=== PATIENT | female | born 1935 | race Caucasian/White ===

== ENCOUNTER 2019-09-14 07:57 | Day surgery (SDC) | payer MEDICARE, BC ==
[2019-09-14] MEDS ORDERED: Sodium Chloride 0.9% 10 ML Syringe FLUSH PRN (08:30)
[2019-09-14 09:46] VITALS: BP 144/78; PULSE 65
--- NOTE | 2019-09-14 13:53 | OR ---
DATE OF PROCEDURE: 09/14/2019 SURGEON: Radha Pardo MD POSTOPERATIVE CARE: Postoperative care will be provided mainly at the [address] [place] [address] [facility] in conjunction with [facility]. PREOPERATIVE DIAGNOSIS: Cataract, right eye. POSTOPERATIVE DIAGNOSIS: Cataract, right eye. PROCEDURE: Phacoemulsification with intraocular lens placement, right eye. ANESTHESIA: Topical and intracameral. ESTIMATED BLOOD LOSS: Minimal. COMPLICATIONS: None. PATHOLOGY SPECIMENS: None. SURGICAL FINDINGS: None. INDICATION FOR PROCEDURE: The patient is an 84-year-old female with history of a visually significant cataract in the right eye, which interfered with activities of daily living. This consisted of a nuclear sclerosis cataract. Following careful discussion of the risks, benefits and alternatives to cataract extraction with intraocular lens placement including blindness and , the patient elected to proceed, and informed, written consent was obtained prior to the procedure. DESCRIPTION OF THE PROCEDURE: The patient was previously identified, and a cynthia placed above the right eye. All sources, including the patient, indicated that the right eye was the correct eye. The patient was subsequently taken to the operating room where standard monitors were applied. The patient was then prepped and draped in the usual sterile fashion for ophthalmic surgery. Attention was first directed at the 12 o'clock position where a paracentesis port was fashioned. Shugar solution followed by Viscoat was instilled into the eye. Attention was then directed to the 8:30 position where a triplanar incision was made in a near-clear manner using a keratome. A continuous capsulorrhexis was then made using a combination of the cystotome and Utrata forceps. Hydrodissection was achieved using a balanced salt solution, and the lens rotated nicely. Phacoemulsification was then done using a modified [id number] technique without complication. Phaco time was 6.69 CDE. The remaining cortex was removed using the irrigation/aspiration handpiece. Provisc was then instilled into the eye. A Technis lens, model [id number], at 20.0 diopters was then placed in the capsular bag using an [place] injector. The remaining viscoelastic was removed using the irrigation/aspiration forceps. All wounds were then checked and found to be watertight. The lid speculum and drapes were removed. Maxitrol ointment was placed in the patient's right eye, and the eye was shielded. The patient tolerated the procedure well. The patient was instructed to follow up tomorrow. All needle and sponge counts were correct at the end of the procedure. Radha Pardo MD /[id number]
== END 2019-09-14 10:05 | disposition home or self-care (01) ==
LOC: JP.SDS 07:57
PROVIDERS: ATTEND Ophthalmology
DX: H25.11 Age-related nuclear cataract, right eye (principal)
CPT/HCPCS: 66984; V2632

== ENCOUNTER 2019-09-28 07:58 | Day surgery (SDC) | payer MEDICARE, BC ==
[2019-09-28] MEDS ORDERED: Sodium Chloride 0.9% 10 ML Syringe FLUSH ONE (08:45)
[2019-09-28 09:17] VITALS: PULSE 69
[2019-09-28 10:18] VITALS: BP 174/78
--- NOTE | 2019-09-28 16:14 | OR ---
DATE OF PROCEDURE: 09/28/2019 SURGEON: Radha Pardo MD POSTOPERATIVE CARE: Postoperative care will be provided mainly at the [address] [place] [address] [facility] in conjunction with [facility]. PREOPERATIVE DIAGNOSIS: Cataract, left eye. POSTOPERATIVE DIAGNOSIS: Cataract, left eye. PROCEDURE: Phacoemulsification with intraocular lens placement, left eye. ANESTHESIA: Topical and intracameral. ESTIMATED BLOOD LOSS: Minimal. COMPLICATIONS: None. PATHOLOGY SPECIMENS: None. SURGICAL FINDINGS: None. INDICATION FOR PROCEDURE: The patient is an 84-year-old female with history of a visually significant cataract in the left eye, which interfered with activities of daily living. This consisted of a nuclear sclerosis cataract. Following careful discussion of the risks, benefits and alternatives to cataract extraction with intraocular lens placement including blindness and , the patient elected to proceed, and informed, written consent was obtained prior to the procedure. DESCRIPTION OF THE PROCEDURE: The patient was previously identified, and a cynthia placed above the left eye. All sources, including the patient, indicated that the left eye was the correct eye. The patient was subsequently taken to the operating room where standard monitors were applied. The patient was then prepped and draped in the usual sterile fashion for ophthalmic surgery. Attention was first directed at the 12 o'clock position where a paracentesis port was fashioned. Shugar solution followed by Viscoat was instilled into the eye. Attention was then directed to the 8:30 position where a triplanar incision was made in a near-clear manner using a keratome. A continuous capsulorrhexis was then made using a combination of the cystotome and Utrata forceps. Hydrodissection was achieved using a balanced salt solution, and the lens rotated nicely. Phacoemulsification was then done using a modified [id number] technique without complication. Phaco time was 8.04 CDE. The remaining cortex was removed using the irrigation/aspiration handpiece. Provisc was then instilled into the eye. A Technis lens, model [id number], at 20.0 diopters was then placed in the capsular bag using an [place] injector. The remaining viscoelastic was removed using the irrigation/aspiration forceps. All wounds were then checked and found to be watertight. The lid speculum and drapes were removed. Maxitrol ointment was placed in the patient's left eye, and the eye was shielded. The patient tolerated the procedure well. The patient was instructed to follow up tomorrow. All needle and sponge counts were correct at the end of the procedure. Radha Pardo MD /[id number]
== END 2019-09-28 10:45 | disposition home or self-care (01) ==
LOC: JP.SDS 07:58
PROVIDERS: ATTEND Ophthalmology
DX: H25.12 Age-related nuclear cataract, left eye (principal); I10 Essential (primary) hypertension; Z88.1 Allergy status to other antibiotic agents
CPT/HCPCS: V2632

== ENCOUNTER 2021-01-10 12:19 | Emergency (ER) | payer MEDICARE, BC ==
[2021-01-10 12:40] VITALS: PULSE 82
--- NOTE | 2021-01-10 13:10 | EDM.PDOC ---
ED HPI GENERAL MEDICAL PROBLEM - General Chief Complaint: Cardiovascular Problem Stated Complaint: HIGH BLOOD PRESSURE Time Seen by Provider: 01/10/21 12:55 Source of Information: Reports: Patient History Limitations: Reports: No Limitations - History of Present Illness INITIAL COMMENTS - FREE TEXT/NARRATIVE: This is a pleasant 85 year old female presenting with high blood pressure. Patient reports that she has a history of HTN and takes losartan, metoprolol, and hydrochlorothiazide. She reports that she is taking these every day as prescribed and has not missed any doses. She is not sure what her blood pressure normally runs, but states that she hasn't been checking it lately because it has been "good". She reports that she hasn't been feeling well for the past few days so she decided to check it and it was high. She can't recall what the numbers were though. She reports that she has been feeling mildly lightheaded the past few days and just has lower energy levels than normal. She denies vertigo or feeling off balance and states she has not felt like she was going to faint. She was able to go get groceries today without difficulty. She otherwise does not have any fever, chills, headache, cough, chest pain, SOB, abdominal pain, nausea, vomiting, diarrhea, dysuria, hematuria, or lower extremity edema. - Related Data Allergies Allergy/AdvReac Type Severity Reaction Status Date / Time neomycin polymyxin dexameth Allergy Other Uncoded 01/10/21 12:44 sleeping medication Allergy Lethargy Uncoded 01/10/21 12:44 Home Meds: Home Meds Levothyroxine 88 mcg PO PCBREAKFAST 04/10/13 [History] Losartan [Cozaar] 100 mg PO DAILY 04/10/13 [History] atorvaSTATin [Lipitor] 40 mg PO BEDTIME 04/10/13 [History] Mirtazapine 7.5 mg PO BEDTIME 06/04/19 [History] hydroCHLOROthiazide [Microzide] 12.5 mg PO DAILY 06/04/19 [History] levETIRAcetam [Keppra] 500 mg PO BID 06/04/19 [History] Calcium Carbonate/Vitamin D3 [Calcium Carbonate/Vitamin D 600 MG-200 Unit] 1 tab PO BID 09/12/19 [History] Dorzolamide/Timolol/Pf [Dorzolamide-Timolol 2%-0.5%] 1 drop EYEBOTH BID 09/12/19 [History] Lactobacillus 3/Fos/Pantethine [Probiotic & Acidophilus] 1 cap PO DAILY 09/12/19 [History] Multivitamin [Multivitamins] 1 cap PO DAILY 09/12/19 [History] Cosmos-3/DHA/Epa/Fish Oil [Cosmos 3 500 Softgel] 1,000 mg PO BID 09/12/19 [History] Vitamin B Complex [B Complex] 1 tab PO DAILY 09/12/19 [History] Aspirin [Adult Low Dose Aspirin EC] 81 mg PO BEDTIME 09/14/19 [History] Metoprolol Tartrate 50 mg PO BEDTIME 09/14/19 [History] Cetirizine HCl [Zyrtec] 10 mg PO DAILY 09/22/19 [History] Diphenhyd/Lidocaine/Nystatin [First-Bxn Mouthwash] 10 ml PO QID 09/22/19 [History] Cholecalciferol (Vitamin D3) [Vitamin D3] 1,000 units PO DAILY 09/28/19 [History] Moxifloxacin [Vigamox 0.5% Ophth Soln] 1 drop EYERT BID 09/28/19 [History] Past Medical History HEENT History: Reports: Cataract, Glaucoma, Impaired Vision Cardiovascular History: Reports: High Cholesterol, Hypertension, Other (See Below) Other Cardiovascular History: "I feel the beat get faster sometimes" Gastrointestinal History: Reports: GERD, Hemorrhoids Genitourinary History: Reports: None [employer] History: Reports: Musculoskeletal History: Reports: Back Pain, Chronic Neurological History: Reports: Vertigo Psychiatric History: Reports: Anxiety Endocrine/Metabolic History: Reports: Hypothyroidism Hematologic History: Reports: Iron Deficiency - Infectious Disease History Infectious Disease History: Reports: Chicken Pox - Past Surgical History HEENT Surgical History: Reports: Adenoidectomy, Cataract Surgery, Tonsillectomy Cardiovascular Surgical History: Reports: None GI Surgical History: Reports: Appendectomy, Colonoscopy Female Surgical History: Reports: Breast Biopsy Neurological Surgical History: Reports: None Social & Family History - Family History Family Medical History: No Pertinent Family History - Tobacco Use Tobacco Use Status *Q: Never Tobacco User - Caffeine Use Caffeine Use: Reports: Coffee ED ROS GENERAL - Review of Systems Review Of Systems: See Below Constitutional: Reports: Malaise, Weakness (generalized), Fatigue. Denies: Fever, Chills, Diaphoresis HEENT: Reports: No Symptoms Respiratory: Denies: Shortness of Breath, Pleuritic Chest Pain, Cough Cardiovascular: Reports: Blood Pressure Problem, Lightheadedness. Denies: Chest Pain, Dyspnea on Exertion, Edema, Orthopnea, Palpitations, Syncope Endocrine: Reports: Fatigue GI/Abdominal: Denies: Abdominal Pain, Constipation, Diarrhea, Nausea, Vomiting : Denies: Dysuria, Frequency, Hematuria, Urgency Musculoskeletal: Reports: No Symptoms Skin: Reports: No Symptoms Neurological: Reports: Weakness (generalized). Denies: Confusion, Dizziness, Headache, Numbness, Paresthesia, Syncope, Trouble Speaking, Difficulty Walking, Gait Disturbance Psychiatric: Reports: No Symptoms Hematologic/Lymphatic: Reports: No Symptoms Immunologic: Reports: No Symptoms ED EXAM, GENERAL - Physical Exam Exam: See Below Exam Limited By: No Limitations General Appearance: Alert, WD/WN, No Apparent Distress Eye Exam: Bilateral Eye: PERRL Ears: Normal External Exam, Hearing Grossly Normal Nose: Normal Inspection Throat/Mouth: Other (MMM) Head: Atraumatic, Normocephalic Neck: Supple, Full Range of Motion Respiratory/Chest: No Respiratory Distress, Lungs Clear, Normal Breath Sounds, No Accessory Muscle Use, Chest Non-Tender Cardiovascular: Normal Peripheral Pulses, Regular Rate, Rhythm, No Edema GI/Abdominal: Soft, Non-Tender Extremities: Normal Inspection, Normal Range of Motion, No Pedal Edema Neurological: Alert, Oriented, CN II-XII Intact, No Motor/Sensory Deficits Psychiatric: Normal Affect, Normal Mood Skin Exam: Warm, Dry, Normal Color #1 Interpretation EKG Date: 01/10/21 Time: 13:20 Rhythm: NSR Rate (Beats/Min): 70 P-Wave: Present QRS: Normal ST-T: Normal QT: Normal EKG Interpretation Comments: Normal Sinus Rhythm with occasional PVCs. No acute ischemic changes appreciated. Course - Vital Signs Last Recorded V/S: Last Vital Signs Temp 97.8 F 01/10/21 12:51 Pulse 82 01/10/21 12:51 Resp 14 01/10/21 12:51 BP 199/99 H 01/10/21 12:51 Pulse Ox 96 01/10/21 12:51 BP 167/70 at 1410 - Orders/Labs/Meds Orders: Active Orders 24 hr Category Date Time Status EKG Documentation Completion [RC] ASDIRECTED Care 01/10/21 13:04 Active EKG 12 Lead [EK] Routine Ther 01/10/21 13:03 Ordered Labs: Laboratory Tests 01/10/21 01/10/21 01/10/21 Range/Units 13:15 13:15 13:52 WBC 7.3 (4.5-11.0) K/uL RBC 5.24 (3.30-5.50) M/uL Hgb 15.2 H (12.0-15.0) g/dL Hct 45.9 (36.0-48.0) % MCV 88 (80-98) fL MCH 29 (27-31) pg MCHC 33 (32-36) % Plt Count 172 (150-400) K/uL Neut % (Auto) 64.8 (36-66) % Lymph % (Auto) 23.2 L (24-44) % [place] % (Auto) 8.5 H (2-6) % Eos % (Auto) 2.9 (2-4) % Baso % (Auto) 0.6 (0-1) % Sodium 142 (140-148) mmol/L Potassium 3.8 (3.6-5.2) mmol/L Chloride 102 (100-108) mmol/L Carbon Dioxide 32 (21-32) mmol/L Anion Gap 7.6 (5.0-14.0) mmol/L BUN 16 (7-18) mg/dL Creatinine 0.7 (0.6-1.0) mg/dL Est Cr Clr Drug Dosing 46.84 mL/min Estimated GFR (MDRD) > 60 (>60) Glucose 104 (74-106) mg/dL Calcium 9.4 (8.5-10.1) mg/dL Troponin I < 0.017 (0.000-0.056) ng/mL Urine Color Yellow (YELLOW) Urine Appearance Clear (CLEAR) Urine pH 5.5 (5.0-8.0) Ur Specific [place] 1.025 (1.008-1.030) Urine Protein Negative (NEGATIVE) mg/dL Urine Glucose (UA) Negative (NEGATIVE) mg/dL Urine Ketones Negative (NEGATIVE) mg/dL Urine Occult Blood Negative (NEGATIVE) Urine Nitrite Negative (NEGATIVE) Urine Bilirubin Negative (NEGATIVE) Urine Urobilinogen 0.2 (0.2-1.0) EU/dL Ur Leukocyte Esterase Trace H (NEGATIVE) Urine RBC 0-5 (0-5) Urine WBC 10-20 H (0-5) Ur Epithelial Cells Not seen Amorphous Sediment Not seen Urine Bacteria Not seen Urine Mucus Not seen Departure - Departure Time of Disposition: 14:13 Disposition: Home, Self-Care 01 Condition: Good Clinical Impression: Hypertension Instructions: Hypertension, Adult Referrals: Fer Langford [employer]ER [Primary Care Provider] - Forms: ED Department Discharge Additional Instructions: Your EKG and labs are normal today. Your blood pressure has improved some here without any intervention. At this time, your blood pressure is not dangerously high where we would need to change your medications today. You should follow up with your doctor on Wednesday or Wednesday to have your blood pressure rechecked. Return to the ED if you develop severe headache, chest pain, SOB, leg swelling, or other concerning symptoms. Sepsis Event Note (ED) - Evaluation Sepsis Screening Result: No Definite Risk - Focused Exam Vital Signs: Vital Signs Temp Pulse Resp BP Pulse Ox 01/10/21 12:51 97.8 F 82 14 199/99 H 96 01/10/21 12:39 97.8 F 82 14 214/104 H 96 - Problem List Review Problem List Initiated/Reviewed/Updated: Yes - My Orders Last 24 Hours: My Active Orders 01/10/21 13:03 EKG 12 Lead [EK] Routine 01/10/21 13:04 EKG Documentation Completion [RC] ASDIRECTED - Assessment/Plan Last 24 Hours: My Active Orders 01/10/21 13:03 EKG 12 Lead [EK] Routine 01/10/21 13:04 EKG Documentation Completion [RC] ASDIRECTED Plan: This is a pleasant 85 year old female presenting with high blood pressure. It looks like her blood pressure typically runs 130-150's systolic in clinic. Initial BP here was quite high, though it improved without intervention to 160's/70's. Her EKG did not reveal any evidence of arrhythmia or ischemia. Labs were unremarkable, including normal kidney function and negative troponin. She has no headache or other neurologic symptoms or signs. There is no evidence of any end organ damage at this time. With her negative evaluation and improving BP, I do not feel she requires any adjustment of her BP medications today. She is stable and is appropriate for discharge home with follow up with primary care Wednesday or Wednesday to recheck BP and determine at that time if BP medications need adjusted or another medication needs started.
[2021-01-10 14:25] VITALS: BP 167/70
== END 2021-01-10 14:30 | disposition home or self-care (01) ==
LOC: JP.ED 12:19
DX: I10 Essential (primary) hypertension (principal); E78.00 Pure hypercholesterolemia, unspecified; K21.9 Gastro-esophageal reflux disease without esophagitis; E03.9 Hypothyroidism, unspecified; Z79.82 Long term (current) use of aspirin; Z79.899 Other long term (current) drug therapy; Z88.1 Allergy status to other antibiotic agents; Z91.09 Other allergy status, other than to drugs and biological substances
CPT/HCPCS: 36415; 80048; 81001; 84484; 85025; 93005; 93010; 99282; 99283-25